=== PATIENT | male | born 1970 | race African-American/Black ===

== ENCOUNTER 2018-09-03 19:27 | Inpatient (IN) | payer OTHER ==
[~2018-09-03] VITALS: Ht 185.4 cm; Wt 179.6 kg
[2018-09-03 19:29] VITALS: BP 180/121
[2018-09-03] MEDS ORDERED: CLONIDINE HCL0.2 M2 (19:36)
[2018-09-03] MEDS ORDERED: PRINIVIL20 MG (19:36)
[2018-09-03] MEDS ORDERED: HYDROCHLOROTH12.5 M1 (19:37)
[2018-09-03 20:04] LABS: ABSOLUTE EOSINOPHILS 0.1 thou/uL (0.0-0.7); ABSOLUTE LYMPHOCYTES 1.7 thou/uL (0.8-5.3); ABSOLUTE MONOCYTES 0.2 thou/uL (0.0-1.2); ABSOLUTE NEUTROPHILS 3.9 thou/uL (1.6-8.1); BASOPHILS 0.8 %; EOSINOPHILS 1.4 %; HEMATOCRIT 46.2 % (42.0-52.0); HEMOGLOBIN 15.5 gm/dL (14.0-18.0); LYMPHOCYTES 28.5 %; MCH 28.5 pg (26.0-34.0); MCHC 33.7 g/dL (28.0-37.0); MCV 84.6 fL (80.0-100.0); MONOCYTES 2.6 %; MPV 8.5 fl. (7.2-11.1); NUCLEATED RBCS 0 /100WBC; PLATELET COUNT* 222 thou/uL (150-400); POLYS 66.7 %; RBC 5.46 mil/uL (4.50-6.00); RDW-CV 14.2 % (10.5-14.5); WBC 5.8 thou/uL (4.0-11.0)
[2018-09-03 20:11] LABS: ANION GAP 8 mmol/L (7-16); BUN 14 mg/dL (7-18); CALCIUM 8.8 mg/dL (8.5-10.1); CHLORIDE 102 mmol/L (98-107); CO2 29 mmol/L (21-32); CREATININE 1.4 mg/dL (0.6-1.3); GLUCOSE 107 mg/dL (70-99); POTASSIUM 3.9 mmol/L (3.5-5.1); PROTIME 10.5 Seconds (9.20-11.50); SODIUM 139 mmol/L (136-145)
[2018-09-03 20:22] LABS: ALBUMIN 3.8 g/dL (3.4-5.0); ALKALINE PHOSPHATASE 75 U/L (46-116); LIPASE 269 U/L (73-393); NT-PRO BRAIN NAT PEPTIDE 84 pg/mL (<300); SGOT 17 U/L (15-37); SGPT 25 U/L (30-65); TOTAL BILIRUBIN 0.3 mg/dL (<0.1-1.0); TOTAL PROTEIN 7.6 g/dL (6.4-8.2); TROPONIN-I LEVEL <0.06 ng/mL (<0.06)
[2018-09-04] VITALS (13 sets, daily range): BP systolic 123–168; BP diastolic 63–95
--- NOTE | 2018-09-04 05:40 | NUR ---
PT. ADMITTED TO ROOM 4 ICU AT 0400 IN POLICE CUSTODY. ALERT AND ORIENTED. CARDENE GTT. ROOM AIR. SINUS RHYTHM ON MONITOR. ORIENTED TO ROOM, CALL LIGHT. ADDICTION COUNSELOR AT BEDSIDE, WILL CONTINUE TO MONITOR.
--- NOTE | 2018-09-04 12:34 | EKG ---
[place] [address] ELECTROCARDIOGRAM REPORT Name: MADELAINE FARAH Room: [address] ADM IN .R.#: [id number] Admission: 09/04/18 Attend Phys: Pollo Lucas MD Discharge: Date of : 66 Report #: [id number] THIS REPORT FOR: //name// [facility] ED Test Date: 2018-09-03 Test Time: 19:36:57 Pat Name: MADELAINE FARAH Department: Room: [facility] Gender: M Sole Tacker: JEVON : 1970 Requested By: Kera Good Order Number: [id number] MD: Cody Posey Measurements Intervals [place] Rate: 60 P: 16 W[place]: 166 QRS: -9 QRSD: 100 T: 27 QT: 426 QTc: 426 Interpretive Statements Sinus rhythm ST elev, probable normal early repol pattern Compared to ECG 06/09/2006 17:06:16 ST (T wave) deviation now present Electronically Signed On 09-04-2018 12:33:54 CNC MAINTENANCE TECHNICIAN by Cody Posey [email or web address] <ELECTRONICALLY SIGNED> By: Cody Posey MD, FACC 09/04/18 1233 35 35 Cody Posey MD, FACC /EPI
--- NOTE | 2018-09-04 14:54 | NUR ---
PT TRANSFERED TO ROOM 228. REPORT TO SHELL VANEGAS. ALL BELONGINGS SENT WITH PT.
--- NOTE | 2018-09-04 16:58 | NUR ---
TECHNICAL SALES ENGINEER MAXIME NOTIFIED OF PT TRANSFER TO ROOM 228.
--- NOTE | 2018-09-04 17:08 | NUR ---
ASSUMED CARE OF PATIENT AT 1500. AGREE WITH PREVIOUS NURSES CHARTING. ALERT AND ORIENTED X4. UP AD RAMEZ IN ROOM. IVX2 ARE PATENT AND SALINE LOCKED. TOLERATING DIET. VSS ON ROOM AIR. HOURLY ROUNDS HAVE BEEN MAINTAINED SINCE ARRIVING ON UNIT. CALL LIGHT IS WITHIN REACH. NURSING WILL CONTINUE TO MONITOR.
[2018-09-05] VITALS: BP 107/82
[2018-09-05 04:00] VITALS: BP 110/64
--- NOTE | 2018-09-05 05:06 | NUR ---
ASSUMED CARE OF PT AFTER REPORT AT 1930. PT A&OX4. VSS. PHYSICAL ASSESSMENT COMPLETED AND CHARTED. PT ON RA WITH 97% O2 SAT. PT TRACING SR ON TELE. PT UP ADLIB TO RESTROOM. PT C/O OF CONSTANT EPIGASTRIC PAIN-SCHEDULED PAIN MEDS GIVEN PER DEC. HOURLY ROUNDING OBSERVED. CALL LIGHT WITHIN REACH. BED IN LOW POSITION. BED ALARM ON.
[2018-09-05 08:15] VITALS: BP 151/92
[2018-09-05] MEDS ORDERED: HYDROCHLOROTH12.5 M1 PO (09:11)
[2018-09-05] MEDS ORDERED: CLONIDINE HCL0.2 M2 PO (09:11)
[2018-09-05] MEDS ORDERED: PRINIVIL20 MG PO (09:11)
[2018-09-05 09:23] VITALS: BP 151/92
--- NOTE | 2018-09-05 09:43 | NUR ---
PATIENT DISCHARGING AT THIS TIME. SECURITY NOTIFIED OF DISCHARGE. [employer] NOTIFIED. QA REVIEWER NOTIFIED. IV'S REMOVED. SCRIPTS GIVEN.
== END 2018-09-05 09:50 | disposition home or self-care (01) | DRG 305 ==
LOC: M.ERS 19:27 → M.2W 09-04 02:25 → M.TBA-ER 09-04 02:25 → M.ICU 09-04 03:55 → M.2W 09-04 14:45
PROVIDERS: Emergency Medicine
DX: I16.0 Hypertensive urgency (principal); E11.9 Type 2 diabetes mellitus without complications; I11.0 Hypertensive heart disease with heart failure; I50.9 Heart failure, unspecified; Z86.73 Personal history of transient ischemic attack (TIA), and cerebral infarction without residual deficits; Z87.891 Personal history of nicotine dependence; Z79.899 Other long term (current) drug therapy